=== PATIENT | female | born 1980 | race Caucasian/White ===

== ENCOUNTER 2017-10-18 16:40 | Emergency (ER) | payer BC ==
[~2017-10-18] VITALS: Ht 162.6 cm; Wt 59.0 kg
[2017-10-18] MEDS ORDERED: LEVAQUIN 500 M500 M4 PO (16:51)
[2017-10-18] MEDS ORDERED: TESSALON PERLE100 MG PO (17:46)
[2017-10-18] MEDS ORDERED: MEDROLDOSEPACK PO (17:46)
[2017-10-18 17:57] VITALS: BP 131/107
== END 2017-10-18 17:57 | disposition home or self-care (01) ==
LOC: M.ERS 16:40
DX: J40 Bronchitis, not specified as acute or chronic (principal); Z90.710 Acquired absence of both cervix and uterus; F17.210 Nicotine dependence, cigarettes, uncomplicated